=== PATIENT | male | born 1980 | race Caucasian/White ===

== ENCOUNTER 2018-04-29 22:11 | Emergency (ER) | payer MEDICAID ==
[~2018-04-29] VITALS: Ht 182.9 cm; Wt 76.2 kg
[~2018-04-29 22:11] MED LIST: ASPIR 8181 MG PO; ATENOLOL 50MG T50 MG PO; ATORVASTATIN CA40 MG PO; CELEXA40 MG PO; HYDROCHLOROTHIA25 M2 PO; IBUPROFEN 800800 M1 PO; KEFLEX500 MG PO; LISINOPRIL20 MG PO; NORVASC5 MG PO; ONDANSETRON HCL4 M2 PO; PLAVIX 75 MG TA75 M1 PO; TRAMADOL 50 MG50 MG PO
[2018-04-30 00:19] VITALS: BP 112/69
== END 2018-04-30 00:19 | disposition home or self-care (01) ==
LOC: M.ERS 22:11
DX: S01.112A Laceration without foreign body of left eyelid and periocular area, initial encounter (principal); I10 Essential (primary) hypertension; Z98.62 Peripheral vascular angioplasty status; Z95.5 Presence of coronary angioplasty implant and graft; F17.210 Nicotine dependence, cigarettes, uncomplicated; S01.412A Laceration without foreign body of left cheek and temporomandibular area, initial encounter; W19.XXXA Unspecified fall, initial encounter; Y93.89 Activity, other specified; Y92.89 Other specified places as the place of occurrence of the external cause; Y99.8 Other external cause status